=== PATIENT | male | born 1970 | race Hispanic/Latino ===

== ENCOUNTER 2019-02-22 13:24 | Emergency (ER) | payer OTHER | END 2019-02-22 14:25 | disposition home or self-care (01) | LOC: C.ER 13:24 ==

== ENCOUNTER 2019-02-22 16:13 | Emergency (ER) | payer OTHER ==
[2019-02-22 16:13] VITALS: BMI 30.4
[2019-02-22 16:17] VITALS: BP 148/85; PULSE 97; RESP 12; TEMP 97.5; O2SAT 94
[2019-02-22] MEDS ORDERED: Naloxone 0.4 mg/ml Inj (Adult) IM ONE (16:24)
--- NOTE | 2019-02-22 16:25 | C.PDOC ---
History Of Present Illness Patient is a 48 year old male bib rapid response in [facility] ED after injecting 8 bags of heroin in the antecubital area in the bathroom. Patient is awaiting [facility] emergency department evaluation. He was evaluated half an hour earlier in [facility] for a small burn of the left wrist. Rapid response called, no Narcan given. He denies any SI/HI, hallucinations, CP or SOB. Patient is also requesting a refill of his albuterol. Time Seen by Provider: 02/22/19 16:18 Chief Complaint (Nursing): Substance Abuse History Per: Patient History/Exam Limitations: no limitations Onset/Duration Of Symptoms: Hrs Modifying Factor(s): Other (heroin) Recent travel outside of the [place]: No Additional History Per: Patient Past Medical History Reviewed: Historical Data, Nursing Documentation, Vital Signs Vital Signs: Last Vital Signs Temp 97.5 F L 02/22/19 16:14 Pulse 97 H 02/22/19 16:14 Resp 12 02/22/19 16:14 BP 148/85 02/22/19 16:14 Pulse Ox 94 L 02/22/19 16:14 - Medical History PMH: Anxiety, Bipolar Disorder, Post Traumatic Stress Disorder, Seizures (DRUG WITHDRAWWAL) Denies: Depression, Diabetes, Hepatitis, HIV, HTN, Chronic Kidney Disease, Sexually Transmitted Disease Surgical History: No Surg Hx - [facility] (10/02/18) APPLICATION OF SPLINT (04/21/06) CLOSURE SKIN & SUBCUTANEOUS NEC (09/30/05) CONTINUOUS INVASIVE MECHANICAL VENTILATION <96 CONSEC HRS (09/15/13) DETOXIFICATION SERVICES FOR SUBSTANCE ABUSE TREATMENT (12/02/18) GROUP ASSEMBLER PLASTIC BOAT FOR SUBSTANCE ABUSE TREATMENT, PSYCHOEDUCATION (12/02/18) INDIV PSYCHOTHERAPY FOR SUBSTANCE ABUSE TREATMENT, SUPPORT (12/02/18) INJECT ANTIBIOTIC (08/14/14) INJECT/INFUSE NEC (01/16/15) INSERT ENDOTRACHEAL TUBE (09/15/13) INTRODUCTION OF SERUM/TOX/VACCINE INTO MUSCLE, PERC APPROACH (10/02/18) MEDICATION MANAGEMENT (12/02/18) MEDS MGMT FOR SUBSTANCE ABUSE TREATMENT, METHADONE MAINT (12/02/18) MEDS MGMT FOR SUBSTANCE ABUSE TREATMENT, NICOTINE REPLACE (12/02/18) NEBULIZER THERAPY (10/14/13) TETANUS TOXOID ADMINIST (08/03/05) Family History: States: No Known Family Hx - Social History Hx Tobacco Use: Yes Hx Alcohol Use: No Hx Substance Use: Yes (heroin iv) - Immunization History Hx Tetanus Toxoid Vaccination: Yes Hx Influenza Vaccination: No Hx Pneumococcal Vaccination: No Review Of Systems Cardiovascular: Negative for: Chest Pain Respiratory: Negative for: Shortness of Breath Psych: Negative for: Suicidal ideation, Other (HI or hallucinations) Physical Exam - Physical Exam Appears: Non-toxic, No Acute Distress, Other (easily arousable with physical stimulus) Head: Atraumatic, Normacephalic Eye(s): bilateral: Other (pinpoint pupils ) Oral Mucosa: Moist Neck: Normal ROM Chest: Symmetrical Cardiovascular: Rhythm Regular, No Murmur Respiratory: Normal Breath Sounds, No Rales, No Rhonchi, No Wheezing Gastrointestinal/Abdominal: Soft Extremity: Other (track bowens on right antecubital area) Neurological/Psych: Oriented x3 ED Course And Treatment O2 Sat by Pulse Oximetry: 94 (on RA) Pulse Ox Interpretation: Normal Medical Decision Making Medical Decision Making: Plan: Narcan 2mg IM narcotic abuse Patient refused Narcan. Discharge papers prepared but patient eloped prior to receiving them. Nurse called patient's cellphone and he answered at approximately 17:15 promising to come back for revaluation and receive his Narcan prescription. As of 16:15 patient has not returned. Disposition Doctor Will See Patient In The: Office Counseled Patient/Family Regarding: Studies Performed, Diagnosis - Disposition Referrals: [facility] [Outside] [facility] [Outside] [facility] [Outside] [facility] [Outside] [facility] [Outside] Disposition: HOME/ ROUTINE Disposition Time: 16:25 Condition: GOOD Additional Instructions: avoid narcotics abuse carry narcan and advise your acquaintances to take it out and spray it up your nose and save your life in case of accidental overdose Seek Detox Seek AA Seek psych counseling. Prescriptions: Albuterol HFA [Ventolin HFA 90 mcg/actuation (8 g)] 2 puff IH Q4H PRN #1 puff PRN Reason: ASTHMA Naloxone HCl [Narcan] 4 mg NS ONCE #1 spray Spacer, Inhalation [Aerochamber] 1 dev IH DAILY #1 dev Instructions: How to Give Naloxone, Accidental Overdose (DC) Forms: [facility] ([place]) - Clinical Impression Clinical Impression: Drug overdose - Scribe Statement The provider has reviewed the documentation as recorded by the Mihiribe Angie Church All medical record entries made by the Mihiribavani were at my direction and personally dictated by me. I have reviewed the chart and agree that the record accurately reflects my personal performance of the history, physical exam, medical decision making, and the department course for this patient. I have also personally directed, reviewed, and agree with the discharge instructions and disposition.
[2019-02-22] MEDS ORDERED: Naloxone 0.4 mg/ml Inj (Adult) ONE ×2 (16:39→16:54)
== END 2019-02-22 16:57 | disposition home or self-care (01) ==
LOC: C.ER 16:13
DX: T40.1X1A Poisoning by heroin, accidental (unintentional), initial encounter (principal); Y92.238 Other place in hospital as the place of occurrence of the external cause
CPT/HCPCS: 96372; 99283; J2310